=== PATIENT | male | born 1980 | race Caucasian/White ===

== ENCOUNTER 2022-02-05 14:09 | Inpatient (IN) | payer OTHER ==
[2022-02-05 15:07] VITALS: BMI 25.7
[2022-02-05] MEDS ORDERED: ACETAMINOPHEN 325 MG TABLET (FP) PO PRN ×2 (16:24)
[2022-02-05] MEDS ORDERED: MAGNESIUM CITRATE 300 ML BOTTLE PO PRN (16:24)
[2022-02-05] MEDS ORDERED: LOPERAMIDE HCL 2 MG CAPSULE PO PRN (16:24)
[2022-02-05] MEDS ORDERED: ONDANSETRON *ODT* 4 MG TABLET SL PRN (16:24)
[2022-02-05] MEDS ORDERED: IBUPROFEN 400 MG TABLET (FP) PO PRN (16:24)
[2022-02-05] MEDS ORDERED: MENTHOL/PHENOL 1 EACH UD MM PRN (16:24)
[2022-02-05] MEDS ORDERED: BISMUTH SUBSALICYLATE 524 MG/30 ML PO PRN (16:24)
[2022-02-05] MEDS ORDERED: MAGNESIUM HYDROX 2400MG/30ML ORAL SUSPENSION 30 ML CUP PO PRN (16:24)
[2022-02-05] MEDS ORDERED: MAG HYDROX/AL HYDROX/SIMETH 30 ML UNIT-DOSE CUP PO PRN (16:24)
[2022-02-05] MEDS ORDERED: chlordiazePOXIDE HCL 25 MG CAPSULE PO PRN (16:30)
[2022-02-05] MEDS: chlordiazePOXIDE HCL 25 MG CAPSULE PO SCH ×2 (18:21→22:10)
[2022-02-05] MEDS: MELATONIN 5 MG TABLETS PO SCH (22:10)
[2022-02-05] MEDS: THIAMINE HCL 100 MG TABLET (FP) PO SCH (22:10)
[2022-02-06] MEDS: chlordiazePOXIDE HCL 25 MG CAPSULE PO SCH ×4 (06:48→22:27)
[2022-02-06] MEDS: METHOCARBAMOL 500 MG TABLET PO PRN (10:36)
[2022-02-06] MEDS: PRENATAL VITAMINS W/ FOLIC ACID TABLET (FP) PO SCH (10:36)
[2022-02-06] MEDS: hydrOXYzine PAMOATE 25 MG CAPSULE (FP) PO PRN ×2 (10:36→22:27)
[2022-02-06] MEDS: FLUoxetine HCL 20 MG CAPSULE PO SCH (10:38)
[2022-02-06 10:45] LABS: HEMOGLOBIN 15.4 GM/dL (11.7-16.9); MCH 31.8 pg (25.7-33.7); MCHC 35.8 g/dl (32.0-35.9); MEAN CELL VOLUME 88.8 fl (80-96); MEAN PLT VOLUME 7.7 fl (7.5-11.1); PLATELET COUNT 227 10^3/uL (134-434); RBC 4.84 M/mm3 (4.00-5.60); RDW 12.6 % (11.9-15.9); WHITE BLOOD COUNT 4.5 K/mm3 (4.0-10.0)
[2022-02-06 10:59] LABS: CALCIUM 8.4 mg/dL (8.5-10.1)
[2022-02-06 11:00] LABS: ALBUMIN 3.5 g/dl (3.4-5.0); BLOOD UREA NITROGEN 15.2 mg/dL (7-18)
[2022-02-06 11:05] LABS: BILIRUBIN,TOTAL 1.8 mg/dL (0.2-1)
[2022-02-06 11:08] LABS: TOT PROT 6.7 g/dl (6.4-8.2)
[2022-02-06] MEDS: MELATONIN 5 MG TABLETS PO SCH (22:27)
[2022-02-06] MEDS: THIAMINE HCL 100 MG TABLET (FP) PO SCH (22:27)
[2022-02-06] MEDS: MIRTAZAPINE 30 MG TABLET PO SCH (22:27)
[2022-02-07] MEDS: chlordiazePOXIDE HCL 25 MG CAPSULE PO SCH ×4 (06:20→22:34)
[2022-02-07] MEDS: FLUoxetine HCL 20 MG CAPSULE PO SCH (10:10)
[2022-02-07] MEDS: PRENATAL VITAMINS W/ FOLIC ACID TABLET (FP) PO SCH (10:10)
[2022-02-07] MEDS: MELATONIN 5 MG TABLETS PO SCH (22:33)
[2022-02-07] MEDS: THIAMINE HCL 100 MG TABLET (FP) PO SCH (22:33)
[2022-02-07] MEDS: MIRTAZAPINE 30 MG TABLET PO SCH (22:34)
[2022-02-08] MEDS ORDERED: chlordiazePOXIDE HCL 10 MG CAPSULE PO PRN
[2022-02-08] MEDS: chlordiazePOXIDE HCL 10 MG CAPSULE PO SCH ×4 (06:07→23:40)
[2022-02-08] MEDS: PRENATAL VITAMINS W/ FOLIC ACID TABLET (FP) PO SCH (10:25)
[2022-02-08] MEDS: FLUoxetine HCL 20 MG CAPSULE PO SCH (10:25)
[2022-02-08 14:08] LABS: SARS-CoV-2 NAA Not Detected (Not Detected)
[2022-02-08] MEDS: MIRTAZAPINE 30 MG TABLET PO SCH (22:21)
[2022-02-08] MEDS: THIAMINE HCL 100 MG TABLET (FP) PO SCH (22:21)
[2022-02-08] MEDS: METHOCARBAMOL 500 MG TABLET PO PRN (22:23)
[2022-02-08] MEDS: MELATONIN 5 MG TABLETS PO SCH (22:24)
[2022-02-09] MEDS ORDERED: chlordiazePOXIDE HCL 10 MG CAPSULE PO SCH (05:00)
[2022-02-09 09:48] VITALS: BP 140/85; PULSE 86; TEMP 96.6
[2022-02-09] MEDS: PRENATAL VITAMINS W/ FOLIC ACID TABLET (FP) PO SCH (10:37)
[2022-02-09] MEDS: FLUoxetine HCL 20 MG CAPSULE PO SCH (10:38)
[2022-02-10] MEDS ORDERED: chlordiazePOXIDE HCL 10 MG CAPSULE PO ONE (05:00)
== END 2022-02-09 13:50 | disposition home or self-care (01) | DRG 775 ==
LOC: YASAS 14:09 → Y6N 17:18
PROVIDERS: ADMIT Allergy & Immunology; ATTEND Allergy & Immunology
PROC: HZ2ZZZZ Detoxification Services for Substance Abuse Treatment (ICD-10-PCS; principal; 2022-02-05)
DX: F10.230 Alcohol dependence with withdrawal, uncomplicated (principal); F12.20 Cannabis dependence, uncomplicated; F17.210 Nicotine dependence, cigarettes, uncomplicated; F33.1 Major depressive disorder, recurrent, moderate; F10.282 Alcohol dependence with alcohol-induced sleep disorder; F10.280 Alcohol dependence with alcohol-induced anxiety disorder; E80.6 Other disorders of bilirubin metabolism; Z62.810 Personal history of physical and sexual abuse in childhood; Z91.410 Personal history of adult physical and sexual abuse
CPT/HCPCS: 36415; 80053; 82247; 85027; 86780; 87811; C9803; Q0162; U0003; U0005